=== PATIENT | female | born 1940 | race Caucasian/White ===

== ENCOUNTER 2016-10-19 08:52 | Inpatient (IN) | payer MEDICAID, MEDICARE ==
[~2016-10-19] VITALS: Ht 170.2 cm; Wt 77.1 kg
[2016-10-19 08:52] VITALS: BP 156/86; PULSE 147; RESP 16; TEMP 97.7; O2SAT 94
[~2016-10-19 08:52] MED LIST: DEPAKOTE; DETROL; LASIX; SINGULAR; SYNTHROID
[2016-10-19] MEDS ORDERED: NACL 0.9% 1,000 ML IV ONE ×2 (08:57→13:00)
[2016-10-19] MEDS ORDERED: ONDANSETRON HCL 4 MG/2 ML VIAL IVP ONE (09:00)
[2016-10-19] MEDS ORDERED: MORPHINE 2 MG/ML INJ. SYRINGE IVP ONE (09:00)
[2016-10-19 09:22] LABS: HEMATOCRIT 38.1 % (36-48); HEMOGLOBIN 12.8 g/dL (12.0-16.0); MEAN CORPUSCULAR HEMOGLOBIN 34 pg (27-31); MEAN CORPUSCULAR HGB CONC 34 % (32-36); MEAN CORPUSCULAR VOLUME 102 fL (79.0-98.0); PLATELET COUNT (AUTO) 119 K/uL (130-430); RED BLOOD CELL COUNT(AUTO) 3.72 MIL/uL (4.2-6.2); RED CELL DISTRIBUTION WIDTH 15.9 % (9.0-15.0); WHITE BLOOD COUNT (AUTO) 12.8 K/uL (4.8-10.8)
[2016-10-19 09:44] LABS: ANION GAP 9 (5-15); CALCIUM 9.8 mg/dL (8.4-11.0); CHLORIDE 104 mmol/L (98-107); CREATININE 3.22 mg/dL (0.55-1.30); GLUCOSE 89 mg/dL (70-99); POTASSIUM 4.8 mmol/L (3.5-5.1); SODIUM SERUM 138 mmol/L (136-145); UREA NITROGEN, BLOOD 43 mg/dL (8-21)
[2016-10-19 09:50] LABS: ALANINE AMINOTRANSFERASE 11 U/L (12-78); ALBUMIN 3.1 g/dL (3.4-4.8); ASPARTATE AMINOTRANSFERASE 24 U/L (10-37); LIPASE 153 U/L (73-393); TOTAL BILIRUBIN 0.6 mg/dL (0.0-1.0); TOTAL PROTEIN, SERUM 8.4 g/dL (6.4-8.3)
[2016-10-19 09:56] LABS: BAND % (MANUAL) 12 % (0-6); BASOPHILS % (MANUAL) 0 % (0-2); EOSINOPHILS % (MANUAL) 3 % (0-7); LYMPHOCYTES % (MANUAL) 17 % (20-46); MONOCYTES % (MANUAL) 11 % (0-11)
[2016-10-19] MEDS ORDERED: cefTRIAXone 1 GM IVPB PREMIX 50 ML IV ONE (10:30)
[2016-10-19] MEDS ORDERED: cefTRIAXone 1 GM VIAL ONE (10:36)
[2016-10-19 10:38] LABS: PROTHROMBIN TIME 11.1 SECS (9.5-12.5)
[2016-10-19 10:40] LABS: BILIRUBIN,URINE NEGATIVE (NEGATIVE); BLOOD, URINE 2+ (NEGATIVE); CLARITY/URINE SL HAZY (CLEAR); COLOR,URINE YELLOW (YELLOW); GLUCOSE,URINE NEGATIVE (NEGATIVE); KETONES,URINE TRACE (NEGATIVE); LEUKOCYTE ESTERASE ,URINE NEGATIVE (NEGATIVE); NITRITE, URINE NEGATIVE (NEGATIVE); PH,URINE 8.5 (5.0-8.0); PROTEIN URINE 1+ (NEGATIVE); UROBILINOGEN,URINE 0.2 (0.2-1.0)
[2016-10-19 10:45] LABS: WBC,URINE NONE SEEN /HPF (0-3)
[2016-10-19 10:46] LABS: BACTERIA,URINE RARE /HPF (None Seen); MUCUS,URINE 1+ /LPF (None Seen)
[2016-10-19 11:00] LABS: BLOOD GAS PH 7.347 (7.350-7.450)
[2016-10-19 11:01] LABS: ABG TOTAL HEMOGLOBIN 11.5 G/dL (12.0-18.0); BLOOD GAS BASE EXCESS -3.8 mmol/L (-3.0-3.0); BLOOD GAS COHb% 2.1 % (0.5-1.5); BLOOD GAS HHB 10.5 % (0.0-6.0); BLOOD O2Hb% 86.9 % (94.0-97.0)
[2016-10-19 15:18] VITALS: BP 99/53; PULSE 115; RESP 20; TEMP 99; O2SAT 94
[2016-10-19] MEDS: D5/0.45 NS 1,000 ML IV SCH (15:37)
[2016-10-19] MEDS ORDERED: FOLI-43 PO (16:13)
[2016-10-19] MEDS ORDERED: DICL100G16 TP (16:13)
[2016-10-19] MEDS ORDERED: MULT-1164 PO (16:13)
[2016-10-19] MEDS ORDERED: LORA10TA7 PO (16:13)
[2016-10-19] MEDS ORDERED: SODI650T PO (16:13)
[2016-10-19] MEDS ORDERED: CARB15DR76 OP (16:13)
[2016-10-19] MEDS ORDERED: LEVO25TA7 PO (16:13)
[2016-10-19] MEDS ORDERED: CHOL500037 PO (16:13)
[2016-10-19] MEDS ORDERED: ASA81 PO (16:13)
[2016-10-19] MEDS ORDERED: DIVA500T4 PO (16:13)
[2016-10-19] MEDS ORDERED: IPRATROPIUM/ALBUTEROL SULFATE 3 ML AMPUL.NEB INH PRN (16:15)
[2016-10-19] MEDS ORDERED: LORATADINE 10 MG TABLET PO PRN (16:30)
[2016-10-19] MEDS ORDERED: AZITHROMYCIN 500 MG in NS 250 ML IV ONE (17:00)
[2016-10-19 19:00] VITALS: BP 110/53; PULSE 130; RESP 22; TEMP 99.1; O2SAT 95
[2016-10-19 20:00] VITALS: BP 110/53; PULSE 115; RESP 20; TEMP 99.1; O2SAT 96
[2016-10-19] MEDS: IPRATROPIUM/ALBUTEROL SULFATE 3 ML AMPUL.NEB INH SCH ×2 (20:13→23:06)
[2016-10-19] MEDS: TEARS ARTIFICIAL 15 ML DROPS OP SCH (21:56)
[2016-10-19] MEDS: SODIUM BICARBONATE 650 MG TABLET PO SCH (21:57)
[2016-10-19] MEDS: DIVALPROEX SODIUM 500 MG TAB.SR.24H (DEPAKOTE ER) PO SCH (21:57)
[2016-10-20] MEDS: D5/0.45 NS 1,000 ML IV SCH ×3 (00:35→22:20)
[2016-10-20 00:48] VITALS: BP 111/67; PULSE 131; RESP 20; TEMP 98.4; O2SAT 92
[2016-10-20] MEDS ORDERED: LORazepam 2 MG/ML VIAL IVP PRN (02:00)
[2016-10-20] MEDS: IPRATROPIUM/ALBUTEROL SULFATE 3 ML AMPUL.NEB INH SCH ×6 (03:23→23:00)
[2016-10-20 03:46] VITALS: BP 109/68; PULSE 141; RESP 20; TEMP 98.6; O2SAT 92
[2016-10-20 04:01] VITALS: BP 109/68; PULSE 147
[2016-10-20] MEDS: LEVOTHYROXINE SODIUM 0.025 MG TABLET PO SCH (06:27)
[2016-10-20 07:17] LABS: ALANINE AMINOTRANSFERASE 10 U/L (12-78); ALBUMIN 2.3 g/dL (3.4-4.8); ANION GAP 10 (5-15); ASPARTATE AMINOTRANSFERASE 29 U/L (10-37); CALCIUM 8.7 mg/dL (8.4-11.0); CHLORIDE 109 mmol/L (98-107); CREATININE 3.34 mg/dL (0.55-1.30); GLUCOSE 110 mg/dL (70-99); POTASSIUM 4.8 mmol/L (3.5-5.1); SODIUM SERUM 140 mmol/L (136-145); TOTAL BILIRUBIN 0.4 mg/dL (0.0-1.0); TOTAL PROTEIN, SERUM 7.1 g/dL (6.4-8.3); UREA NITROGEN, BLOOD 47 mg/dL (8-21)
[2016-10-20 07:49] LABS: HEMATOCRIT 31.9 % (36-48); HEMOGLOBIN 11.1 g/dL (12.0-16.0); MEAN CORPUSCULAR HEMOGLOBIN 37 pg (27-31); MEAN CORPUSCULAR HGB CONC 35 % (32-36); MEAN CORPUSCULAR VOLUME 105 fL (79.0-98.0); PLATELET COUNT (AUTO) 84 K/uL (130-430); RED BLOOD CELL COUNT(AUTO) 3.04 MIL/uL (4.2-6.2); RED CELL DISTRIBUTION WIDTH 16.1 % (9.0-15.0); WHITE BLOOD COUNT (AUTO) 13.9 K/uL (4.8-10.8)
[2016-10-20] MEDS ORDERED: ASPIRIN 81 MG TAB.CHEW PO ONE (09:00)
[2016-10-20] MEDS: NITROGLYCERIN 1 INCH (GM) OINT. TP SCH (09:00)
[2016-10-20] MEDS: ASPIRIN 81 MG TAB.CHEW PO SCH (09:00)
[2016-10-20] MEDS ORDERED: NS 500 ML IV ONE (09:30)
[2016-10-20 09:40] LABS: ATYPICAL LYMPHOCYTES % 4 % (0-0); BAND % (MANUAL) 34 % (0-6); BASOPHILS % (MANUAL) 0 % (0-2); EOSINOPHILS % (MANUAL) 1 % (0-7); LYMPHOCYTES % (MANUAL) 15 % (20-46); METAMYELOCYTES % 1 % (0-0); MONOCYTES % (MANUAL) 6 % (0-11)
[2016-10-20] MEDS ORDERED: DILTIAZEM HCL 120 MG CAP.SR.24H PO ONE (10:15)
[2016-10-20] MEDS: FOLIC ACID 1 MG TABLET PO SCH (10:26)
[2016-10-20] MEDS: SODIUM BICARBONATE 650 MG TABLET PO SCH ×2 (10:26→22:05)
[2016-10-20] MEDS: DIVALPROEX SODIUM 500 MG TAB.SR.24H (DEPAKOTE ER) PO SCH ×2 (10:27→22:05)
[2016-10-20] MEDS: MULTIVITS,CA,MINERALS/IRON/FA 1 TABLET PO SCH (10:27)
[2016-10-20 12:15] VITALS: BP 100/52; PULSE 128; RESP 19; TEMP 97.3; O2SAT 97
[2016-10-20 12:42] VITALS: Ht 170.2 cm; Wt 77.1 kg
[2016-10-20] MEDS ORDERED: methylPREDNISolone SOD SUCC 40 MG/ML VIAL IVP ONE (13:15)
[2016-10-20 15:24] LABS: BLOOD GAS PH 7.296 (7.350-7.450)
[2016-10-20 15:25] LABS: BLOOD GAS BASE EXCESS -6.5 mmol/L (-3.0-3.0); BLOOD GAS HHB 5.8 % (0.0-6.0); BLOOD O2Hb% 93.9 % (94.0-97.0)
[2016-10-20 16:12] VITALS: BP 104/56; PULSE 75; RESP 18; TEMP 98; O2SAT 97
[2016-10-20] MEDS: LEVOFLOXACIN 250 MG/D5W 50 ML IV SCH (17:04)
[2016-10-20 20:00] VITALS: BP 91/57; PULSE 84; RESP 20; TEMP 97.6; O2SAT 95
[2016-10-20] MEDS ORDERED: AZITHROMYCIN 500 MG in NS 250 ML IV SCH (21:00)
[2016-10-20] MEDS: TEARS ARTIFICIAL 15 ML DROPS OP SCH (22:04)
[2016-10-20] MEDS: methylPREDNISolone SOD SUCC 40 MG/ML VIAL IVP SCH (22:04)
[2016-10-20] MEDS: LACTOBACILLUS RHAMNOSUS GG 1 CAP CAPSULE PO SCH (22:05)
[2016-10-20] MEDS: metroNIDAZOLE 250 mg/NS 50 ML IV SCH (22:06)
[2016-10-21] VITALS (7 sets, daily range): BP systolic 92–109; BP diastolic 50–58; PULSE 69–110; RESP 16–20; TEMP 97.2–98.8; O2SAT 69–100
[2016-10-21] MEDS: IPRATROPIUM/ALBUTEROL SULFATE 3 ML AMPUL.NEB INH SCH ×5 (03:07→20:33)
[2016-10-21] MEDS: NITROGLYCERIN 1 INCH (GM) OINT. TP SCH ×3 (06:00→11:38)
[2016-10-21] MEDS: metroNIDAZOLE 250 mg/NS 50 ML IV SCH ×3 (06:23→23:03)
[2016-10-21] MEDS: LEVOTHYROXINE SODIUM 0.025 MG TABLET PO SCH (06:23)
[2016-10-21] MEDS: D5/0.45 NS 1,000 ML IV SCH ×2 (06:24→20:18)
[2016-10-21 06:39] LABS: ALANINE AMINOTRANSFERASE 9 U/L (12-78); ALBUMIN 1.7 g/dL (3.4-4.8); ANION GAP 6 (5-15); ASPARTATE AMINOTRANSFERASE 19 U/L (10-37); CALCIUM 8.2 mg/dL (8.4-11.0); CHLORIDE 106 mmol/L (98-107); CHOLESTEROL 83 mg/dL (<200); CREATININE 3.27 mg/dL (0.55-1.30); GLUCOSE 155 mg/dL (70-99); LDL CHOLESTEROL 26 mg/dL (<100); POTASSIUM 4.8 mmol/L (3.5-5.1); SODIUM SERUM 134 mmol/L (136-145); THYROID STIMULATING HORMONE 0.11 uIu/mL (0.34-4.82); TOTAL BILIRUBIN 0.2 mg/dL (0.0-1.0); TOTAL PROTEIN, SERUM 5.7 g/dL (6.4-8.3); TRIGLYCERIDES 74 mg/dL (30-150); UREA NITROGEN, BLOOD 57 mg/dL (8-21)
[2016-10-21 06:54] LABS: HEMATOCRIT 26.3 % (36-48); MEAN CORPUSCULAR HEMOGLOBIN 34 pg (27-31); MEAN CORPUSCULAR HGB CONC 33 % (32-36); MEAN CORPUSCULAR VOLUME 103 fL (79.0-98.0); PLATELET COUNT (AUTO) 57 K/uL (130-430); RED BLOOD CELL COUNT(AUTO) 2.55 MIL/uL (4.2-6.2); RED CELL DISTRIBUTION WIDTH 15.8 % (9.0-15.0); WHITE BLOOD COUNT (AUTO) 10.8 K/uL (4.8-10.8)
[2016-10-21 07:10] LABS: HDL CHOLESTEROL 30 mg/dL (>55)
[2016-10-21 07:32] LABS: HEMOGLOBIN 8.6 g/dL (12.0-16.0)
[2016-10-21] MEDS ORDERED: ENOXAPARIN SODIUM 30 MG/0.3 ML SYRINGE SUBCUT SCH (09:00)
[2016-10-21] MEDS: DILTIAZEM HCL 120 MG CAP.SR.24H PO SCH (09:00)
[2016-10-21] MEDS: TEARS ARTIFICIAL 15 ML DROPS OP SCH ×2 (09:29→23:08)
[2016-10-21] MEDS: methylPREDNISolone SOD SUCC 40 MG/ML VIAL IVP SCH ×2 (09:29→20:19)
[2016-10-21] MEDS: MULTIVITS,CA,MINERALS/IRON/FA 1 TABLET PO SCH (09:29)
[2016-10-21] MEDS: FOLIC ACID 1 MG TABLET PO SCH (09:29)
[2016-10-21] MEDS: SODIUM BICARBONATE 650 MG TABLET PO SCH ×2 (09:30→20:20)
[2016-10-21] MEDS: LACTOBACILLUS RHAMNOSUS GG 1 CAP CAPSULE PO SCH ×2 (09:30→20:20)
[2016-10-21] MEDS: ASPIRIN 81 MG TAB.CHEW PO SCH (09:30)
[2016-10-21] MEDS: DIVALPROEX SODIUM 500 MG TAB.SR.24H (DEPAKOTE ER) PO SCH ×2 (09:31→20:19)
[2016-10-21 11:13] LABS: ATYPICAL LYMPHOCYTES % 0 % (0-0); BAND % (MANUAL) 42 % (0-6); BASOPHILS % (MANUAL) 0 % (0-2); EOSINOPHILS % (MANUAL) 0 % (0-7); LYMPHOCYTES % (MANUAL) 17 % (20-46); MONOCYTES % (MANUAL) 2 % (0-11)
[2016-10-21] MEDS: LEVOFLOXACIN 250 MG/D5W 50 ML IV SCH (17:05)
[2016-10-21] MEDS: MUPIROCIN 2% TOPICAL OINTMENT 22 GM TP SCH (20:19)
[2016-10-21] MEDS: ACETAMINOPHEN 500 MG TABLET PO PRN (23:04)
[2016-10-22] VITALS (7 sets, daily range): BP systolic 102–126; BP diastolic 54–64; PULSE 56–121; RESP 14–20; TEMP 97–99.4; O2SAT 92–98
[2016-10-22] MEDS: IPRATROPIUM/ALBUTEROL SULFATE 3 ML AMPUL.NEB INH SCH ×7 (00:19→23:04)
[2016-10-22] MEDS: NITROGLYCERIN 1 INCH (GM) OINT. TP SCH ×4 (01:30→17:27)
[2016-10-22] MEDS: D5/0.45 NS 1,000 ML IV SCH ×2 (05:09→13:23)
[2016-10-22] MEDS: metroNIDAZOLE 250 mg/NS 50 ML IV SCH ×3 (06:33→22:27)
[2016-10-22] MEDS: LEVOTHYROXINE SODIUM 0.025 MG TABLET PO SCH (06:33)
[2016-10-22 06:55] LABS: ANION GAP 12 (5-15); CALCIUM 8.3 mg/dL (8.4-11.0); CHLORIDE 103 mmol/L (98-107); CREATININE 3.47 mg/dL (0.55-1.30); GLUCOSE 144 mg/dL (70-99); POTASSIUM 4.9 mmol/L (3.5-5.1); SODIUM SERUM 137 mmol/L (136-145); UREA NITROGEN, BLOOD 70 mg/dL (8-21)
[2016-10-22 07:20] LABS: BASOPHILS % (AUTO) 0.2 % (0.0-2.0); HEMATOCRIT 26.8 % (36-48); HEMOGLOBIN 8.8 g/dL (12.0-16.0); MEAN CORPUSCULAR HEMOGLOBIN 34 pg (27-31); MEAN CORPUSCULAR HGB CONC 33 % (32-36); MEAN CORPUSCULAR VOLUME 103 fL (79.0-98.0); MONOCYTES # (AUTO) 0.3 K/uL (0.0-1.0); MONOCYTES % (AUTO) 2.7 % (1.7-9.3); NEUTROPHILS # (AUTO) 8.3 K/uL (1.8-7.7); NEUTROPHILS % (AUTO) 87.1 % (40.0-70.0); PLATELET COUNT (AUTO) 79 K/uL (130-430); RED CELL DISTRIBUTION WIDTH 15.7 % (9.0-15.0); WHITE BLOOD COUNT (AUTO) 9.6 K/uL (4.8-10.8)
[2016-10-22] MEDS: DIVALPROEX SODIUM 500 MG TAB.SR.24H (DEPAKOTE ER) PO SCH ×2 (09:16→22:25)
[2016-10-22] MEDS: MULTIVITS,CA,MINERALS/IRON/FA 1 TABLET PO SCH (09:16)
[2016-10-22] MEDS: ASPIRIN 81 MG TAB.CHEW PO SCH (09:16)
[2016-10-22] MEDS: SODIUM BICARBONATE 650 MG TABLET PO SCH ×2 (09:17→22:24)
[2016-10-22] MEDS: DILTIAZEM HCL 120 MG CAP.SR.24H PO SCH (09:17)
[2016-10-22] MEDS: methylPREDNISolone SOD SUCC 40 MG/ML VIAL IVP SCH ×2 (09:17→22:24)
[2016-10-22] MEDS: LACTOBACILLUS RHAMNOSUS GG 1 CAP CAPSULE PO SCH ×2 (09:17→22:24)
[2016-10-22] MEDS: TEARS ARTIFICIAL 15 ML DROPS OP SCH ×2 (09:17→22:26)
[2016-10-22] MEDS: FOLIC ACID 1 MG TABLET PO SCH (09:17)
[2016-10-22] MEDS: MUPIROCIN 2% TOPICAL OINTMENT 22 GM TP SCH ×2 (09:18→22:25)
[2016-10-22] MEDS: LEVOFLOXACIN 250 MG/D5W 50 ML IV SCH (16:05)
[2016-10-22] MEDS ORDERED: EPOETIN ALFA 10,000 UNITS/ML VIAL SUBCUT SCH (17:00)
[2016-10-23] VITALS (7 sets, daily range): BP systolic 98–127; BP diastolic 52–73; PULSE 82–109; RESP 15–20; TEMP 96.9–99.1; O2SAT 92–98
[2016-10-23] MEDS: IPRATROPIUM/ALBUTEROL SULFATE 3 ML AMPUL.NEB INH SCH ×6 (03:17→23:43)
[2016-10-23] MEDS: metroNIDAZOLE 250 mg/NS 50 ML IV SCH ×3 (06:47→21:43)
[2016-10-23] MEDS: LEVOTHYROXINE SODIUM 0.025 MG TABLET PO SCH (06:47)
[2016-10-23] MEDS: NITROGLYCERIN 1 INCH (GM) OINT. TP SCH ×4 (06:49→18:00)
[2016-10-23 07:36] LABS: ANION GAP 8 (5-15); CALCIUM 8.7 mg/dL (8.4-11.0); CHLORIDE 105 mmol/L (98-107); CREATININE 3.57 mg/dL (0.55-1.30); GLUCOSE 138 mg/dL (70-99); POTASSIUM 5.2 mmol/L (3.5-5.1); SODIUM SERUM 136 mmol/L (136-145); UREA NITROGEN, BLOOD 79 mg/dL (8-21)
[2016-10-23 07:41] LABS: BASOPHILS % (AUTO) 0.3 % (0.0-2.0); HEMATOCRIT 28.9 % (36-48); HEMOGLOBIN 9.5 g/dL (12.0-16.0); LYMPHOCYTES # (AUTO) 1.3 K/uL (1.0-5.5); LYMPHOCYTES % (AUTO) 12.3 % (20.5-51.5); MEAN CORPUSCULAR HEMOGLOBIN 34 pg (27-31); MEAN CORPUSCULAR HGB CONC 33 % (32-36); MEAN CORPUSCULAR VOLUME 103 fL (79.0-98.0); MONOCYTES # (AUTO) 0.2 K/uL (0.0-1.0); MONOCYTES % (AUTO) 1.7 % (1.7-9.3); NEUTROPHILS # (AUTO) 9.1 K/uL (1.8-7.7); NEUTROPHILS % (AUTO) 85.7 % (40.0-70.0); PLATELET COUNT (AUTO) 105 K/uL (130-430); RED BLOOD CELL COUNT(AUTO) 2.81 MIL/uL (4.2-6.2); RED CELL DISTRIBUTION WIDTH 15.6 % (9.0-15.0); WHITE BLOOD COUNT (AUTO) 10.6 K/uL (4.8-10.8)
[2016-10-23 07:57] LABS: ALANINE AMINOTRANSFERASE 11 U/L (12-78); ASPARTATE AMINOTRANSFERASE 15 U/L (10-37); TOTAL BILIRUBIN 0.2 mg/dL (0.0-1.0); TOTAL PROTEIN, SERUM 5.9 g/dL (6.4-8.3)
[2016-10-23] MEDS: ASPIRIN 81 MG TAB.CHEW PO SCH (08:44)
[2016-10-23] MEDS: SODIUM BICARBONATE 650 MG TABLET PO SCH ×2 (08:44→21:42)
[2016-10-23] MEDS: DILTIAZEM HCL 120 MG CAP.SR.24H PO SCH (08:44)
[2016-10-23] MEDS: LACTOBACILLUS RHAMNOSUS GG 1 CAP CAPSULE PO SCH ×2 (08:44→21:42)
[2016-10-23] MEDS: MULTIVITS,CA,MINERALS/IRON/FA 1 TABLET PO SCH (08:44)
[2016-10-23] MEDS: methylPREDNISolone SOD SUCC 40 MG/ML VIAL IVP SCH ×2 (08:45→21:43)
[2016-10-23] MEDS: MUPIROCIN 2% TOPICAL OINTMENT 22 GM TP SCH ×2 (08:45→21:51)
[2016-10-23] MEDS: DIVALPROEX SODIUM 500 MG TAB.SR.24H (DEPAKOTE ER) PO SCH ×2 (08:45→21:42)
[2016-10-23] MEDS: FOLIC ACID 1 MG TABLET PO SCH (08:46)
[2016-10-23] MEDS: TEARS ARTIFICIAL 15 ML DROPS OP SCH ×2 (08:47→21:51)
[2016-10-23] MEDS: D5/0.45 NS 1,000 ML IV SCH (10:00)
[2016-10-23] MEDS ORDERED: BISACODYL 10 MG/SUPPOSITORY RC ONE (12:45)
[2016-10-23] MEDS: LEVOFLOXACIN 250 MG/D5W 50 ML IV SCH (16:00)
[2016-10-23] MEDS: ACETAMINOPHEN 500 MG TABLET PO PRN (17:55)
[2016-10-24 00:18] VITALS: BP 117/74; PULSE 80; RESP 18; TEMP 98.8; O2SAT 97
[2016-10-24] MEDS: D5/0.45 NS 1,000 ML IV SCH ×3 (02:28→21:38)
[2016-10-24] MEDS: IPRATROPIUM/ALBUTEROL SULFATE 3 ML AMPUL.NEB INH SCH ×6 (03:15→23:31)
[2016-10-24 04:19] VITALS: BP 94/59; PULSE 83; RESP 19; TEMP 99; O2SAT 92
[2016-10-24] MEDS: NITROGLYCERIN 1 INCH (GM) OINT. TP SCH ×4 (06:41→17:36)
[2016-10-24] MEDS: LEVOTHYROXINE SODIUM 0.025 MG TABLET PO SCH (06:41)
[2016-10-24] MEDS: metroNIDAZOLE 250 mg/NS 50 ML IV SCH ×3 (06:42→21:38)
[2016-10-24 07:35] LABS: BASOPHILS # (AUTO) 0.1 K/uL (0.0-0.2); BASOPHILS % (AUTO) 1.3 % (0.0-2.0); HEMATOCRIT 27.5 % (36-48); HEMOGLOBIN 9.1 g/dL (12.0-16.0); LYMPHOCYTES # (AUTO) 0.9 K/uL (1.0-5.5); LYMPHOCYTES % (AUTO) 12.7 % (20.5-51.5); MEAN CORPUSCULAR HEMOGLOBIN 33 pg (27-31); MEAN CORPUSCULAR HGB CONC 33 % (32-36); MEAN CORPUSCULAR VOLUME 102 fL (79.0-98.0); MONOCYTES # (AUTO) 0.2 K/uL (0.0-1.0); MONOCYTES % (AUTO) 2.9 % (1.7-9.3); NEUTROPHILS # (AUTO) 5.6 K/uL (1.8-7.7); NEUTROPHILS % (AUTO) 83.1 % (40.0-70.0); PLATELET COUNT (AUTO) 123 K/uL (130-430); RED BLOOD CELL COUNT(AUTO) 2.71 MIL/uL (4.2-6.2); RED CELL DISTRIBUTION WIDTH 15.3 % (9.0-15.0); WHITE BLOOD COUNT (AUTO) 6.8 K/uL (4.8-10.8)
[2016-10-24 08:00] VITALS: BP 92/55; PULSE 76; RESP 18; TEMP 98.6; O2SAT 97
[2016-10-24 08:00] LABS: ALANINE AMINOTRANSFERASE 12 U/L (12-78); ALBUMIN 1.8 g/dL (3.4-4.8); ANION GAP 7 (5-15); ASPARTATE AMINOTRANSFERASE 11 U/L (10-37); CALCIUM 8.4 mg/dL (8.4-11.0); CHLORIDE 105 mmol/L (98-107); CREATININE 3.48 mg/dL (0.55-1.30); GLUCOSE 138 mg/dL (70-99); POTASSIUM 5.4 mmol/L (3.5-5.1); SODIUM SERUM 134 mmol/L (136-145); TOTAL BILIRUBIN 0.2 mg/dL (0.0-1.0); TOTAL PROTEIN, SERUM 5.4 g/dL (6.4-8.3); UREA NITROGEN, BLOOD 82 mg/dL (8-21)
[2016-10-24] MEDS: DILTIAZEM HCL 120 MG CAP.SR.24H PO SCH (09:00)
[2016-10-24] MEDS: TEARS ARTIFICIAL 15 ML DROPS OP SCH ×2 (09:26→21:38)
[2016-10-24] MEDS: MUPIROCIN 2% TOPICAL OINTMENT 22 GM TP SCH ×2 (09:26→21:37)
[2016-10-24] MEDS: LACTOBACILLUS RHAMNOSUS GG 1 CAP CAPSULE PO SCH ×2 (09:26→21:37)
[2016-10-24] MEDS: FOLIC ACID 1 MG TABLET PO SCH (09:27)
[2016-10-24] MEDS: MULTIVITS,CA,MINERALS/IRON/FA 1 TABLET PO SCH (09:27)
[2016-10-24] MEDS: ASPIRIN 81 MG TAB.CHEW PO SCH (09:27)
[2016-10-24] MEDS: DIVALPROEX SODIUM 500 MG TAB.SR.24H (DEPAKOTE ER) PO SCH ×2 (09:27→21:37)
[2016-10-24] MEDS: methylPREDNISolone SOD SUCC 40 MG/ML VIAL IVP SCH (09:27)
[2016-10-24] MEDS: SODIUM BICARBONATE 650 MG TABLET PO SCH ×2 (09:27→21:37)
[2016-10-24] MEDS ORDERED: SODIUM POLYSTYRENE SULFONATE 15 GM/60 ML UDBTL PO ONE ×2 (09:45→10:45)
[2016-10-24 12:00] VITALS: BP 94/49; PULSE 78; RESP 20; TEMP 99; O2SAT 99
[2016-10-24] MEDS: ACETAMINOPHEN 500 MG TABLET PO PRN (12:26)
[2016-10-24 16:00] VITALS: BP 98/46; PULSE 93; RESP 20; TEMP 97.3; O2SAT 94
[2016-10-24] MEDS: LEVOFLOXACIN 250 MG/D5W 50 ML IV SCH (16:03)
[2016-10-24 19:30] VITALS: BP 116/70; PULSE 108; RESP 18; TEMP 98; O2SAT 94
[2016-10-25 00:06] VITALS: BP 124/66; PULSE 85; RESP 21; TEMP 97.9; O2SAT 93
[2016-10-25] MEDS: IPRATROPIUM/ALBUTEROL SULFATE 3 ML AMPUL.NEB INH SCH ×6 (03:03→23:42)
[2016-10-25 04:07] VITALS: BP 128/60; PULSE 92; RESP 21; TEMP 97; O2SAT 95
[2016-10-25] MEDS: NITROGLYCERIN 1 INCH (GM) OINT. TP SCH ×4 (06:00→18:00)
[2016-10-25] MEDS: metroNIDAZOLE 250 mg/NS 50 ML IV SCH ×3 (06:36→22:01)
[2016-10-25] MEDS: LEVOTHYROXINE SODIUM 0.025 MG TABLET PO SCH (06:36)
[2016-10-25 06:47] LABS: BASOPHILS % (AUTO) 0.5 % (0.0-2.0); HEMATOCRIT 28.9 % (36-48); HEMOGLOBIN 9.6 g/dL (12.0-16.0); LYMPHOCYTES % (AUTO) 15.1 % (20.5-51.5); MEAN CORPUSCULAR HEMOGLOBIN 34 pg (27-31); MEAN CORPUSCULAR HGB CONC 33 % (32-36); MEAN CORPUSCULAR VOLUME 103 fL (79.0-98.0); MONOCYTES % (AUTO) 0.2 % (1.7-9.3); NEUTROPHILS # (AUTO) 5.9 K/uL (1.8-7.7); NEUTROPHILS % (AUTO) 84.2 % (40.0-70.0); PLATELET COUNT (AUTO) 126 K/uL (130-430); RED CELL DISTRIBUTION WIDTH 15.8 % (9.0-15.0); WHITE BLOOD COUNT (AUTO) 6.9 K/uL (4.8-10.8)
[2016-10-25 06:52] LABS: ALANINE AMINOTRANSFERASE 11 U/L (12-78); ALBUMIN 1.9 g/dL (3.4-4.8); ANION GAP 6 (5-15); ASPARTATE AMINOTRANSFERASE 11 U/L (10-37); CALCIUM 8.1 mg/dL (8.4-11.0); CHLORIDE 104 mmol/L (98-107); CREATININE 3.38 mg/dL (0.55-1.30); GLUCOSE 198 mg/dL (70-99); POTASSIUM 4.7 mmol/L (3.5-5.1); SODIUM SERUM 133 mmol/L (136-145); TOTAL BILIRUBIN 0.2 mg/dL (0.0-1.0); TOTAL PROTEIN, SERUM 5.5 g/dL (6.4-8.3); UREA NITROGEN, BLOOD 83 mg/dL (8-21)
[2016-10-25 08:00] VITALS: BP 110/62; PULSE 72; RESP 17; TEMP 98.6; O2SAT 95
[2016-10-25] MEDS: TEARS ARTIFICIAL 15 ML DROPS OP SCH ×2 (09:10→22:07)
[2016-10-25] MEDS: MUPIROCIN 2% TOPICAL OINTMENT 22 GM TP SCH ×2 (09:10→22:07)
[2016-10-25] MEDS: MULTIVITS,CA,MINERALS/IRON/FA 1 TABLET PO SCH (09:11)
[2016-10-25] MEDS: methylPREDNISolone SOD SUCC 40 MG/ML VIAL IVP SCH (09:11)
[2016-10-25] MEDS: FOLIC ACID 1 MG TABLET PO SCH (09:11)
[2016-10-25] MEDS: ASPIRIN 81 MG TAB.CHEW PO SCH (09:11)
[2016-10-25] MEDS: SODIUM BICARBONATE 650 MG TABLET PO SCH ×2 (09:11→22:00)
[2016-10-25] MEDS: LACTOBACILLUS RHAMNOSUS GG 1 CAP CAPSULE PO SCH (09:11)
[2016-10-25] MEDS: ACETAMINOPHEN 500 MG TABLET PO PRN (09:11)
[2016-10-25] MEDS: DILTIAZEM HCL 120 MG CAP.SR.24H PO SCH (09:17)
[2016-10-25] MEDS: DIVALPROEX SODIUM 500 MG TAB.SR.24H (DEPAKOTE ER) PO SCH ×2 (09:17→22:01)
[2016-10-25] MEDS: D5/0.45 NS 1,000 ML IV SCH ×2 (09:18→16:42)
[2016-10-25 12:00] VITALS: BP 118/65; PULSE 80; RESP 16; TEMP 98.9; O2SAT 94
[2016-10-25 16:00] VITALS: BP 109/63; PULSE 92; RESP 16; TEMP 98.6; O2SAT 94
[2016-10-25] MEDS: LEVOFLOXACIN 250 MG/D5W 50 ML IV SCH (16:49)
[2016-10-25] MEDS ORDERED: EPOETIN ALFA 10,000 UNITS/ML VIAL SUBCUT SCH (17:00)
[2016-10-25 20:00] VITALS: BP 117/61; PULSE 94; RESP 16; TEMP 98.4; O2SAT 97
[2016-10-26 01:02] VITALS: BP 117/61; PULSE 94; RESP 20; TEMP 97.2; O2SAT 94
[2016-10-26] MEDS: D5/0.45 NS 1,000 ML IV SCH (01:56)
[2016-10-26] MEDS: IPRATROPIUM/ALBUTEROL SULFATE 3 ML AMPUL.NEB INH SCH ×5 (03:57→20:05)
[2016-10-26 04:00] VITALS: BP 120/63; PULSE 96; RESP 20; TEMP 97.6; O2SAT 94
[2016-10-26] MEDS: LEVOTHYROXINE SODIUM 0.025 MG TABLET PO SCH (06:08)
[2016-10-26] MEDS: metroNIDAZOLE 250 mg/NS 50 ML IV SCH ×3 (06:09→21:10)
[2016-10-26] MEDS: NITROGLYCERIN 1 INCH (GM) OINT. TP SCH ×5 (06:09→23:59)
[2016-10-26 08:26] VITALS: BP 127/56; PULSE 84
[2016-10-26] MEDS: DIVALPROEX SODIUM 500 MG TAB.SR.24H (DEPAKOTE ER) PO SCH ×2 (08:31→20:28)
[2016-10-26] MEDS: SODIUM BICARBONATE 650 MG TABLET PO SCH ×2 (08:32→20:29)
[2016-10-26] MEDS: FOLIC ACID 1 MG TABLET PO SCH (08:33)
[2016-10-26] MEDS: DILTIAZEM HCL 120 MG CAP.SR.24H PO SCH (08:33)
[2016-10-26] MEDS: ASPIRIN 81 MG TAB.CHEW PO SCH (08:33)
[2016-10-26] MEDS: methylPREDNISolone SOD SUCC 40 MG/ML VIAL IVP SCH (08:33)
[2016-10-26] MEDS: MULTIVITS,CA,MINERALS/IRON/FA 1 TABLET PO SCH (08:34)
[2016-10-26] MEDS: TEARS ARTIFICIAL 15 ML DROPS OP SCH ×2 (08:35→20:27)
[2016-10-26] MEDS: MUPIROCIN 2% TOPICAL OINTMENT 22 GM TP SCH (08:35)
[2016-10-26] MEDS: ACETAMINOPHEN 500 MG TABLET PO PRN ×2 (11:40→20:31)
[2016-10-26 12:00] VITALS: BP 110/56; PULSE 102; RESP 18; TEMP 98.6; O2SAT 91
[2016-10-26 16:00] VITALS: BP 105/52; PULSE 78; RESP 18; TEMP 98.3; O2SAT 98
[2016-10-26 20:15] VITALS: BP 113/68; PULSE 97; RESP 20; TEMP 97.1; O2SAT 97
[2016-10-27 00:02] VITALS: BP 113/68; PULSE 98; RESP 19; TEMP 96.8; O2SAT 98
[2016-10-27] MEDS: IPRATROPIUM/ALBUTEROL SULFATE 3 ML AMPUL.NEB INH SCH ×4 (00:15→11:43)
[2016-10-27] MEDS: NITROGLYCERIN 1 INCH (GM) OINT. TP SCH (05:23)
[2016-10-27] MEDS: metroNIDAZOLE 250 mg/NS 50 ML IV SCH (05:24)
[2016-10-27] MEDS: LEVOTHYROXINE SODIUM 0.025 MG TABLET PO SCH (06:04)
[2016-10-27 06:08] VITALS: BP 121/60; PULSE 75; RESP 19; TEMP 97.2; O2SAT 95
[2016-10-27 07:28] LABS: BASOPHILS % (AUTO) 0.3 % (0.0-2.0); HEMATOCRIT 29.3 % (36-48); HEMOGLOBIN 9.6 g/dL (12.0-16.0); LYMPHOCYTES # (AUTO) 1.5 K/uL (1.0-5.5); LYMPHOCYTES % (AUTO) 17.7 % (20.5-51.5); MEAN CORPUSCULAR HEMOGLOBIN 34 pg (27-31); MEAN CORPUSCULAR HGB CONC 33 % (32-36); MEAN CORPUSCULAR VOLUME 104 fL (79.0-98.0); MONOCYTES # (AUTO) 0.7 K/uL (0.0-1.0); MONOCYTES % (AUTO) 8.4 % (1.7-9.3); NEUTROPHILS # (AUTO) 6.4 K/uL (1.8-7.7); NEUTROPHILS % (AUTO) 73.6 % (40.0-70.0); PLATELET COUNT (AUTO) 171 K/uL (130-430); RED BLOOD CELL COUNT(AUTO) 2.83 MIL/uL (4.2-6.2); RED CELL DISTRIBUTION WIDTH 16.1 % (9.0-15.0); WHITE BLOOD COUNT (AUTO) 8.6 K/uL (4.8-10.8)
[2016-10-27 08:00] VITALS: BP 126/71; PULSE 77; RESP 20; TEMP 97.4; O2SAT 98
[2016-10-27 08:18] LABS: ALANINE AMINOTRANSFERASE 11 U/L (12-78); ALBUMIN 1.9 g/dL (3.4-4.8); ANION GAP 4 (5-15); ASPARTATE AMINOTRANSFERASE 12 U/L (10-37); CALCIUM 8.2 mg/dL (8.4-11.0); CHLORIDE 107 mmol/L (98-107); CREATININE 3.34 mg/dL (0.55-1.30); GLUCOSE 86 mg/dL (70-99); POTASSIUM 5.7 mmol/L (3.5-5.1); SODIUM SERUM 135 mmol/L (136-145); TOTAL BILIRUBIN 0.2 mg/dL (0.0-1.0); TOTAL PROTEIN, SERUM 5.2 g/dL (6.4-8.3); UREA NITROGEN, BLOOD 92 mg/dL (8-21)
[2016-10-27] MEDS: MULTIVITS,CA,MINERALS/IRON/FA 1 TABLET PO SCH (08:55)
[2016-10-27] MEDS: FOLIC ACID 1 MG TABLET PO SCH (08:55)
[2016-10-27] MEDS: ASPIRIN 81 MG TAB.CHEW PO SCH (08:55)
[2016-10-27] MEDS: SODIUM BICARBONATE 650 MG TABLET PO SCH (08:55)
[2016-10-27] MEDS: TEARS ARTIFICIAL 15 ML DROPS OP SCH (08:56)
[2016-10-27] MEDS: DILTIAZEM HCL 120 MG CAP.SR.24H PO SCH (08:56)
[2016-10-27] MEDS: DIVALPROEX SODIUM 500 MG TAB.SR.24H (DEPAKOTE ER) PO SCH (08:56)
[2016-10-27 12:00] VITALS: BP 102/52; PULSE 78; RESP 21; TEMP 97; O2SAT 95
[2016-10-27 12:29] VITALS: BP 102/52; PULSE 78; RESP 21; TEMP 97; O2SAT 95
== END 2016-10-27 13:30 | DRG 720 ==
LOC: SED 08:52 → SMU 11:13 → STU 14:39 → SMU 10-25 19:43
PROVIDERS: ADMIT Internal Medicine; ATTEND Internal Medicine
DX: A41.9 Sepsis, unspecified organism (principal); J96.01 Acute respiratory failure with hypoxia; J69.0 Pneumonitis due to inhalation of food and vomit; G93.41 Metabolic encephalopathy; D69.6 Thrombocytopenia, unspecified; I47.1 Supraventricular tachycardia; D53.9 Nutritional anemia, unspecified; N18.3 Chronic kidney disease, stage 3 (moderate); D63.1 Anemia in chronic kidney disease; M19.90 Unspecified osteoarthritis, unspecified site; G31.84 Mild cognitive impairment of uncertain or unknown etiology; Z88.8 Allergy status to other drugs, medicaments and biological substances; G40.909 Epilepsy, unspecified, not intractable, without status epilepticus; I12.9 Hypertensive chronic kidney disease with stage 1 through stage 4 chronic kidney disease, or unspecified chronic kidney disease; E03.9 Hypothyroidism, unspecified; R53.81 Other malaise; H91.90 Unspecified hearing loss, unspecified ear; I25.10 Atherosclerotic heart disease of native coronary artery without angina pectoris; K21.9 Gastro-esophageal reflux disease without esophagitis; K57.90 Diverticulosis of intestine, part unspecified, without perforation or abscess without bleeding; Z87.440 Personal history of urinary (tract) infections; Z88.0 Allergy status to penicillin; Z88.2 Allergy status to sulfonamides; Z90.49 Acquired absence of other specified parts of digestive tract; Z88.5 Allergy status to narcotic agent
CPT/HCPCS: 36415; 36600; 71010; 71250-TC; 76770; 80048; 80053; 80061; 80164-TC; 81000-TC; 82140-TC; 82607; 82803-TC; 82962; 83605; 83615-TC; 83690-TC; 83735-TC; 83880; 84132-TC; 84443-TC; 84484; 85007; 85025; 85027; 85610-TC; 85730-TC; 86022; 86710; 87040-TC; 87081; 87205-TC; 93005; 93306; 94640; 94760; 96361; 96374; 96375; 99285; J0456; J0696; J0885; J1030; J1650; J1956; J2270; J2405; J3490; J7030; J7040; J7050